=== PATIENT | female | born 1970 | race Caucasian/White ===

== ENCOUNTER → 2017-06-28 | Outpatient (CLI) | payer OTHER ==
--- NOTE | 2017-06-28 12:56 | Diagnostic Imaging Report ---
EXAMINATION: Mammogram bilateral screening with CAD. INDICATION: Screening. COMPARISON: This is the patient's baseline study. PERSONAL HISTORY: At this time, there are no current complaints. FINDINGS: The fibroglandular tissue in both breasts is heterogeneously dense. This does limit the sensitivity of this exam. There is no primary or secondary sign of malignancy noted. IMPRESSION: 1. There is no evidence for malignancy. 2. The patient should have her annual bilateral screening mammogram on schedule in June 2018. ACR BI-RADS Category 1: Negative. Result letter will be mailed to the patient. Note: At least 10% of breast cancer is not imaged by mammography. Dictated by: Dictated on workstation # [id number]
== END ==
LOC: RAD 08:19
PROVIDERS: ATTEND Nurse Practitioner Family
DX: Z12.31 Encounter for screening mammogram for malignant neoplasm of breast (principal); I25.10 Atherosclerotic heart disease of native coronary artery without angina pectoris
CPT/HCPCS: 77067

== ENCOUNTER → 2020-04-21 | Outpatient (CLI) | payer OTHER ==
--- NOTE | 2020-04-22 14:31 | Diagnostic Imaging Report ---
INDICATION: Routine screening. COMPARISON: 06/28/2017. TECHNIQUE: 2D and 3D bilateral screening mammography was performed with CAD. FINDINGS: Both breasts are heterogeneously dense, limiting the sensitivity of mammography. No mass or malignant appearing microcalcifications are seen. The axillae are unremarkable. IMPRESSION: No mammographic features suspicious for malignancy are identified. ACR BI-RADS Category 1: Negative. Result letter will be mailed to the patient. Note: At least 10% of breast cancer is not imaged by mammography. Dictated by: Dictated on workstation # [id number]
== END ==
LOC: RAD 15:45
PROVIDERS: ATTEND Nurse Practitioner Family
DX: Z12.31 Encounter for screening mammogram for malignant neoplasm of breast (principal)
CPT/HCPCS: 77063; 77067

== ENCOUNTER → 2022-02-25 | Outpatient (CLI) | payer OTHER ==
--- NOTE | 2022-02-25 09:58 | Diagnostic Imaging Report ---
PROCEDURE: CT abdomen and pelvis without contrast. TECHNIQUE: Multiple contiguous axial images were obtained through the abdomen and pelvis without the use of intravenous contrast. Auto Exposure Controls were utilized during the CT exam to meet ALARA standards for radiation dose reduction. INDICATION: Left-sided ovarian cyst. No prior studies are available for comparison. FINDINGS: The lung bases are clear. Liver and gallbladder are unremarkable. No liver mass or biliary ductal dilatation is seen. The pancreas and spleen are unremarkable. No adrenal mass is detected. Kidneys are unremarkable. No calculi or hydronephrosis is identified. Aorta is calcified but nonaneurysmal. The bowel loops are normal caliber. There is no obstruction. Bladder and uterus are unremarkable. There is a cystic mass in the left adnexa measuring approximately 4.4 x 3.6 cm, likely ovarian. No abdominal or pelvic lymphadenopathy is detected. IMPRESSION: Left adnexal cyst, likely ovarian. The study is otherwise unremarkable. Dictated by: Dictated on workstation # [id number]
== END ==
LOC: RAD 08:47
PROVIDERS: ATTEND Obstetrics & Gynecology
DX: N83.202 Unspecified ovarian cyst, left side (principal)
CPT/HCPCS: 74176

== ENCOUNTER 2022-03-26 05:16 | Outpatient (CLI) | payer SELFPAY ==
[~2022-03-26] VITALS: Ht 162.5 cm; Wt 78.0 kg
[2022-03-26] MEDS ORDERED: LORA10TA7 PO (08:36)
[2022-03-26] MEDS ORDERED: TRIA15CR TP (08:36)
[2022-03-26] MEDS ORDERED: MONT-40 PO (08:36)
[2022-03-26] MEDS ORDERED: PSEU-182 PO (08:36)
[2022-03-26] MEDS ORDERED: FLUT15.845 NS (08:36)
[2022-03-26] MEDS ORDERED: MV-M1TAB88 PO (08:36)
[2022-03-26] MEDS ORDERED: ALBU90AE2 IH (08:36)
[2022-03-26] MEDS ORDERED: ALBU2.5V4 INH (08:36)
[2022-03-26] MEDS ORDERED: BUDE10.2 IH (10:30)
[2022-03-26] MEDS ORDERED: TIOT18CA2 IH (10:30)
[2022-03-26] MEDS ORDERED: DIPH25CA79 PO (10:30)
== END 2022-03-26 10:48 ==
LOC: PREOP 05:16
PROVIDERS: ATTEND Obstetrics & Gynecology
DX: Z01.818 Encounter for other preprocedural examination (principal)

== ENCOUNTER 2022-04-05 07:04 | Day surgery (SDC) | payer OTHER ==
[~2022-04-05] VITALS: Ht 162.5 cm; Wt 78.0 kg
[2022-04-05] VITALS (11 sets, daily range): BP systolic 91–127; BP diastolic 52–81
[~2022-04-05 07:04] MED LIST: ALBU2.5V4 INH; ALBU90AE2 IH; BUDE10.2 IH; DIPH25CA79 PO; FLUT15.845 NS; LORA10TA7 PO; MONT-40 PO; MV-M1TAB88 PO; PSEU-182 PO; TIOT18CA2 IH; TRIA15CR TP
[2022-04-05] MEDS ORDERED: BUPIVACAINE 0.25% 30 ML (SENSORCAINE) VIAL ONE (07:10)
[2022-04-05 07:43] LABS: BASOPHILS % (AUTO) 1 % (0-10); EOSINOPHILS # (AUTO) 0.1 10^3/uL (0.0-0.3); EOSINOPHILS % (AUTO) 2 % (0-10); HEMATOCRIT 46 % (35-52); HEMOGLOBIN 15.6 g/dL (11.5-16.0); LYMPHOCYTES # (AUTO) 1.2 10^3/uL (1.0-4.0); LYMPHOCYTES % (AUTO) 33 % (12-44); MEAN CORPUSCULAR HEMOGLOBIN 31 pg (25-34); MEAN CORPUSCULAR HGB CONC 34 g/dL (32-36); MEAN CORPUSCULAR VOLUME 92 fL (80-99); MEAN PLATELET VOLUME 9.9 fL (9.0-12.2); MONOCYTES # (AUTO) 0.3 10^3/uL (0.0-1.0); MONOCYTES % (AUTO) 8 % (0-12); NEUTROPHILS # (AUTO) 2.1 10^3/uL (1.8-7.8); NEUTROPHILS % (AUTO) 57 % (42-75); PLATELET COUNT 260 10^3/uL (130-400); WHITE BLOOD COUNT 3.7 10^3/uL (4.3-11.0)
[2022-04-05] MEDS: LACTATED RINGERS 1,000 ML IV PRN ×2 (08:12→09:55)
[2022-04-05] MEDS ORDERED: ONDANSETRON 4 MG/2 ML (SDV) Z0FRAN IVP PRN ×2 (09:00→10:45)
[2022-04-05] MEDS ORDERED: D5 LR IV SOLUTION 1,000 ML IV SCH (09:00)
[2022-04-05] MEDS ORDERED: KETOROLAC 30 MG/ML VIAL IVP ONE (09:00)
[2022-04-05] MEDS ORDERED: LIDOCAINE PF 2% 5 ML (XYLOCAINE) VIAL ONE (09:11)
[2022-04-05] MEDS ORDERED: ONDANSETRON 4 MG/2 ML (SDV) Z0FRAN ONE (09:11)
[2022-04-05] MEDS ORDERED: GLYCOPYRROLATE 0.2 MG/ML (ROBINUL) 2 ML VIAL ONE (09:11)
[2022-04-05] MEDS ORDERED: proPOfol 200 MG/20 ML (DIPRIVAN) VIAL IV ONE (09:11)
[2022-04-05] MEDS ORDERED: ROCURONIUM 10 MG/ML 5 ML SYRINGE IV ONE (09:11)
--- NOTE | 2022-04-05 09:11 | History & Physical-Surgical ---
HPO-Surgical History of Present Illness Chief Complaint: Left ovarian Cyst 4x4cm Diagnosis/Surgical Indication: LEFT OVARIAN CYST, INCREASED LACTATE DEHYDROGENASE Procedure: DIAGNOSTIC LAP, REMOVAL LEFT OVARY AND CYST Date of Surgery: Apr 05, 2022 Allergies and Home Medications Allergies Coded Allergies: hydrocodone (Unverified Allergy, Severe, Shortness of Breath, 03/26/22) Patient Home Medication List Home Medication List Reviewed: Yes Albuterol Sulfate (Proair Digihaler) 90 Mcg Aer.pw.bas, 90 MCG IH UD, (Reported) Entered as Reported by: BENTON ADEN on 03/26/22835 Last Action: Last Taken Edited Budesonide/Formoterol Fumarate (Symbicort 160-4.5 Mcg Inhaler) 160 Mcg-4.5 Mcg/Actuation Hfa.aer.ad, 2 PUFF IH BID, (Reported) Entered as Reported by: BENTON ADEN on 03/26/221029 Last Action: Last Taken Edited Diphenhydramine HCl (Benadryl) 25 Mg Capsule, 25 MG PO HS, (Reported) Entered as Reported by: BENTON ADEN on 03/26/22 103 Last Action: Last Taken Edited Fluticasone Propionate (Fluticasone Propionate) 50 Mcg/Actuation [place].susp, 15.8 ML NS UD, (Reported) Entered as Reported by: BENTON ADEN on 03/26/22835 Last Action: Last Taken Edited Loratadine (Loratadine) 10 Mg Tablet, 10 MG PO DAILY, (Reported) Entered as Reported by: BENTON ADEN on 03/26/22835 Last Action: Last Taken Edited Montelukast Sodium (Montelukast Sodium) 10 Mg Tablet, 10 MG PO HS, (Reported) Entered as Reported by: BENTON ADEN on 03/26/22835 Last Action: Last Taken Edited Mv-Mn/FA/Bl Coh/Isoflav/Jujube (Estroven Menopause Caplet) 400 Mcg-40 Mg-40 Mg- 100 Mg Tablet, 1 EACH PO DAILY, (Reported) Entered as Reported by: BENTON ADEN on 03/26/22835 Last Action: Last Taken Edited Pseudoephedrine HCl (Sudafed) 30 Mg Tablet, 30 MG PO PRN, (Reported) Entered as Reported by: BENTON ADEN on 10/14/22 0836 Tiotropium [place] (Spiriva) 18 Mcg Aerp, 1 INH IH UD, (Reported) Entered as Reported by: BENTON ADEN on 03/26/22 1030 Last Action: Last Taken Edited Past Lrsyezx-Uukreb-Ofrjeg Hx Patient Social History Smoking Status: Former Smoker Former Smoker, Quit: Mar 26, 2012 Recent Hopitalizations: No Immunizations Up To Date Date of Influenza Vaccine: Mar 24, 2021 Seasonal Allergies Seasonal Allergies: Yes Surgeries Yes (TONSILS, , TUBAL) Section, Tonsillectomy, Tubal Ligation Respiratory Yes (IHALERS) Cardiovascular No Neurological No Reproductive System Female Reproductive Disorders: Ovarian Cyst CERTIFIED HOME HEALTH AIDE History: Tubal Ligation Genitourinary No Gastrointestinal Yes Gastroesophageal Reflux Musculoskeletal No Endocrine History of Endocrine Disorders: No HEENT History of HEENT Disorders: No Cancer No Psychosocial History of Psychiatric Problem: No Integumentary History of Skin or Integumenta: No Blood Transfusions History of Blood Disorders: No Exam Vital Signs Vital Signs 04/05/22 07:35 Temp 36.2 Pulse 98 Resp 18 B/P (MAP) 121/67 (85) Pulse Ox 98 O2 Delivery Room Air Capillary Refill : Labs Laboratory Tests Test 04/05/22 07:32 Range/Units White Blood Count 3.7 L 4.3-11.0 10^3/uL Red Blood Count 4.99 3.80-5.11 10^6/uL Hemoglobin 15.6 11.5-16.0 g/dL Hematocrit 46 35-52 % Mean Corpuscular Volume 92 80-99 fL Mean Corpuscular Hemoglobin 31 25-34 pg Mean Corpuscular Hemoglobin Concent 34 32-36 g/dL Red Cell Distribution Width 12.8 10.0-14.5 % Platelet Count 260 130-400 10^3/uL Mean Platelet Volume 9.9 9.0-12.2 fL Immature Granulocyte % (Auto) 0 % Neutrophils (%) (Auto) 57 42-75 % Lymphocytes (%) (Auto) 33 12-44 % Monocytes (%) (Auto) 8 0-12 % Eosinophils (%) (Auto) 2 0-10 % Basophils (%) (Auto) 1 0-10 % Neutrophils # (Auto) 2.1 1.8-7.8 10^3/uL Lymphocytes # (Auto) 1.2 1.0-4.0 10^3/uL Monocytes # (Auto) 0.3 0.0-1.0 10^3/uL Eosinophils # (Auto) 0.1 0.0-0.3 10^3/uL Basophils # (Auto) 0.0 0.0-0.1 10^3/uL Immature Granulocyte # (Auto) 0.0 0.0-0.1 10^3/uL General Appearance: Alert, Oriented X3 HEENT: Atraumatic Respiratory: Clear to Auscultation Cardiovascular: Regular Rate Abdominal: Normal Bowel Sounds Extremities: No Clubbing Skin: No Rashes Neuro: Normal Gait Psych/Mental Status: Mental Status NL Assessment/Plan Assessment and Plan Diagnosis: 51 yo female with Left ovarian cyst 4x4 cm Elevated LDH P: Diagnostic laparoscopy removal of left ovary and cyst. Admission Diagnosis Admission Status: Observation CHARITY PETTIT DO Apr 05, 2022 09:11
[2022-04-05] MEDS ORDERED: NEOSTIGMINE (BLOXIVERZ ) 1 MG/1ML 10 ML VIAL ONE (09:12)
[2022-04-05] MEDS ORDERED: MIDAZOLAM 2 MG/2 ML (VERSED) VIAL ONE (09:12)
[2022-04-05] MEDS ORDERED: fentaNYL INJ 100 MCG/2 ML AMP ONE (09:12)
--- NOTE | 2022-04-05 09:12 | Discharge Inst-Women's Service ---
Discharge Inst-Women's Serv Depart Medication/Instructions New, Converted or Re-Newed RX: Transmitted to Pharmacy Problems Reviewed?: Yes Consults/Follow Up Additional Follow Up: Yes Orders/Referrals Dr. Gustafson/ [place] in 7-10 days Activity Activity: Activity as Tolerated Driving Instructions: No Driving for 1 Week NO SMOKING: NO SMOKING Nothing Inside Vagina: No Douching, No Eleele, No Tampons Diet Discharge Diet: No Restrictions Symptoms to Report to : Bleeding Excessive, Pain Increased, Fever Over 101 Degrees F, Vaginal Bleeding Increase, Questions/Concerns For Any Problems or Questions: Contact Your Physician Skin/Wound Care Infection Signs and Symptoms: Increased Redness, Foul Odor of Wound, Increased Drainage, Skin Itchy or Has a Rash, Increased Swelling, Temperature Above 101 F Operative Area Clean and Dry: Keep Incision Clean/Dry Stitches/Oscar/Dermabond: Dermabond, Care of Stitches Bathing Instructions: CHARITY Odom DO Apr 05, 2022 09:12
[2022-04-05] MEDS ORDERED: IBUP-1773 PO (09:14)
[2022-04-05] MEDS ORDERED: TRM50T PO (09:14)
[2022-04-05] MEDS ORDERED: BUPIVACAINE 0.25% 30 ML (SENSORCAINE) VIAL INJ ONE (10:05)
[2022-04-05] MEDS ORDERED: SEVOFLURANE (ULTANE) 15 ML INHAL SOLN ONE (10:17)
[2022-04-05] MEDS ORDERED: KETOROLAC 30 MG/ML VIAL ONE (10:31)
[2022-04-05] MEDS ORDERED: HYDROmorphone 2 MG/ML VIAL (DILAUDID) IV ONE (10:45)
[2022-04-05] MEDS ORDERED: morphine INJ 10 MG/ML 1ML (SYR OR VIAL) IVP ONE (10:45)
--- NOTE | 2022-04-05 21:16 | OPERATIVE REPORT ---
DATE OF SERVICE: PREOPERATIVE DIAGNOSIS: A 51-year-old female with 4 cm left adnexal cyst. POSTOPERATIVE DIAGNOSIS: A 51-year-old female with 4 cm left adnexal cyst. PROCEDURE: Laparoscopic removal of left ovary and cyst. SURGEON: Khanh Gustafson DO ANESTHESIA: General endotracheal. ESTIMATED BLOOD LOSS: Minimal. URINE OUTPUT: 50 mL at the end of the procedure. FLUIDS: 800 mL lactated Ringer's solution. FINDINGS: A grossly normal-appearing right ovary, bilateral fallopian tubes, uterus, grossly normal appearing upper abdominal anatomy, left ovary is enlarged, approximately 4 to 5 cm in diameter with a simple cystic appearance. SPECIMEN SENT: Pelvic washings and left ovarian cyst. INDICATIONS FOR PROCEDURE: This 51-year-old female is a patient who had sought care in my office as a referral due to a stable left adnexal cyst that had been seen on ultrasound on two separate occasions. She was consulted in my office for evaluation of this. I discussed with the patient the benign appearance on ultrasound; however, due to an elevated LDH level on her tumor markers, we discussed removal. Risk of this was discussed with the patient in detail including risk of bleeding, infection, damage to surrounding structures including, but not limited to bowel, bladder, ureter, kidneys, possible need for reoperation, postoperative complications that may occur, risk from anesthesia, recovery timeframe and even were all discussed with the patient in detail. After all of her questions were answered, consent was obtained, the patient was taken to the operating room. OPERATIVE REPORT IN DETAIL: Once in the operating room, general anesthesia was found to be adequate. She was placed in the dorsal lithotomy position, prepped and draped in normal sterile fashion. Timeout was performed. Ibarra catheter was placed using sterile technique. A weighted speculum inserted to the patient's vagina, which allows me to visualize the cervix, which I grasped at 12 o'clock position using a long Allis clamp. I then gently sound the uterine cavity, depth was found to be 8 cm. I placed a KrFreeverer uterine manipulator to a depth of 8 cm deploying the balloon, I removed all the other instruments from the patient's vagina, performed change of gloves, turned my attention to the abdomen, where subcostally at the midclavicular line on the left side, I introduced the Veress needle until intraperitoneal placement was confirmed using a saline drop test. An opening pressure of 3 mmHg was noted. I proceeded with CO2 insufflation to maximum pressure of 15 mmHg, at which point, I make a 5 mm infraumbilical incision and directed a blunt laparoscopic trocar through this incision until intraperitoneal placement was confirmed using the 5 mm laparoscope. There was no evidence of damage from entry site. A brief scan of the upper abdominal anatomy appears to be grossly normal. There is no evidence of damage from the Veress entry site. The Veress was then removed. I then had the patient placed in steep Trendelenburg, where I am able to visualize all my pelvic anatomy as defined in my findings above. There is an enlargement of the left ovary with the cystic structure adjacent to it. I proceed by placing a 12 mm suprapubic trocar under direct visualization of the laparoscope. Once this was in place, I used a LigaSure device to start at the uteroovarian ligament on the left side, I sealed and transected using the LigaSure. I took this around the mesovarium all the way to the infundibulopelvic ligament, which I sealed and transected using the LigaSure device and then removed the entire specimen using a 10 mm Endopouch bag through the suprapubic trocar site. The cyst was brought up to the abdominal opening where it is drain aspirated at that point in the bag and intact, it is removed from the pelvis. Before all this was done, pelvic washings were collected using suction irrigation. There is a small amount of bleeding at the left IP ligament, which was grasped and cauterized using the LigaSure device and this area was covered using Surgiflo hemostatic agent after which no active bleeding noted from any of those dissection planes noted. I then had the patient taken out of steep Trendelenburg, where I released insufflation. I removed the 12 mm trocar under direct visualization of the laparoscope. I attempted to palpate the fascial opening digitally; however, it is so small, does not necessitate suture reapproximation. Therefore, I released the remainder of the insufflation using a 5 mm trocar site and then removed the 5 mm trocar site as well. After I introduced 10 mL of 0.25% Marcaine into the peritoneal cavity for postoperative pain management. I then closed the 12 mm trocar incision site using 4-0 Monocryl in an interrupted subcuticular stitch. Dermabond was applied to all of the incisions and puncture sites and Band-Aids were placed over all the incisions as well. Ibarra catheter was removed at the end of the procedure. Kronner uterine manipulator was removed. The patient tolerated the procedure well and sent to recovery area in stable condition. Lap and sponge counts were correct at the end of the procedure. Instrument counts correct as well. Job ID: [id number] DocumentID: [id number] Dictated Date: 04/05/2022 10:57:13 Care Transport Nurse Date: 04/05/2022 21:15:54 Dictated By: DO DI GARCIA
--- NOTE | 2022-04-09 10:19 | Anesthesia-General Post-Op ---
General Patient Condition Mental Status/LOC: Same as Preop Cardiovascular: Satisfactory Nausea/Vomiting: Absent Respiratory: Satisfactory Pain: Controlled Complications: Absent Post Op Complications Complications None Follow Up Care/Instructions Patient Instructions None needed. Anesthesia/Patient Condition Patient Condition Patient was doing well in PACU and seen approximately 1115 prior to her return to [facility]. She had C/O hip discomfort initially in PACU and was told it was most likely from the lithotomy position used during the case. Improved with position change and ketorolac that was given in PACU. Otherwise no complaints, stable v ital signs, no apparent adverse anesthesia problems. No complications reported per nursing. DARA MILTON DO Apr 09, 2022 10:19
== END 2022-04-05 12:35 | disposition home or self-care (01) ==
LOC: SDC 07:04
PROVIDERS: ATTEND Obstetrics & Gynecology
DX: N83.202 Unspecified ovarian cyst, left side (principal); Z87.891 Personal history of nicotine dependence
CPT/HCPCS: 36415; 84703; 85025; 86850; 86900; 86901; 87081